=== PATIENT | male | born 1995 | race African-American/Black ===

== ENCOUNTER 2020-05-03 06:19 | Emergency (ER) | payer OTHER ==
[2020-05-03] MEDS ORDERED: ONDANSETRON HCL INJ/PF 4 MG/2 ML SDV IV ONE (06:47)
[2020-05-03] MEDS ORDERED: HYDROMORPHONE HCL INJ/PF 2 MG/ML AMPULE IV ONE ×2 (06:47→07:54)
[2020-05-03] MEDS ORDERED: ETOMIDATE INJ/PF 20 MG/10 ML SDV IV ONE ×2 (06:47→07:56)
--- NOTE | 2020-05-03 06:53 | ER Document Report ---
ED General - General Chief Complaint: Shoulder Injury Stated Complaint: DISLOCATED SHOULDER Primary Care Provider: RENO MIRELES MD [COMMUNITY BASED STAFF] - Follow up as needed - HPI Notes: Chief complaint: Recurrent left shoulder dislocation. 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 He complains of severe pain in the left shoulder. He has never had surgery on his shoulder. 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 He smokes about 4 cigars a day. Drinks alcohol socially. Denies drug use. Denies any other significant medical problems. Last meal was greater than 6 hours ago. Denies any prior problems with procedural sedation/anesthesia. 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 HENT: Negative for sore throat. Eyes: Negative for visual changes. Cardiovascular: Negative for chest pain. Respiratory: Negative for shortness of breath. Gastrointestinal: Negative for abdominal pain, vomiting or diarrhea. Genitourinary: Negative for dysuria. Musculoskeletal: As per HPI. Skin: Negative for rash. Neurological: Negative for headaches, weakness or numbness. 10 point ROS negative except as marked above and in HPI. Physical Exam - Vital signs Vitals: Resp 13 05/03/20 06:24 - Notes Notes: GENERAL: Well-developed well-nourished male approximately stated age appearing in severe pain. SKIN: Good turgor no rashes. HEAD: Normocephalic atraumatic. EYES: PERRLA. EOMI. Conjunctivae and sclerae clear. EARS: CANALS AND TMS CLEAR. NOSE: CLEAR. MOUTH: Moist mucosa. Good dentition. No stridor or edema. No drooling. NECK: Supple. No masses or thyromegaly. No adenopathy. Carotids 2+ without bruits. No JVD. BACK: Symmetrical without tenderness. CHEST: Respirations unlabored. Breath sounds clear and symmetrical. HEART: Regular rhythm. No murmur gallop or rub. ABDOMEN: Soft nontender without masses, organomegaly or rebound. Bowel sounds normally active. No bruits. GENITALIA: Deferred. EXTREMITIES: Left shoulder appears obviously dislocated. Patient is holding his left upper extremity close to his body with 90 degree flexion of elbow resisting movement in all planes secondary to pain. His distal neurovascular status is intact. No edema. No calf tenderness. Cap refill less than 1.5 seconds. Dorsalis pedis and posterior tibial pulses 3+ and symmetrical. NEUROLOGICAL: GCS 15. Alert and oriented x3. Normal gait. Fluent speech. Cranial nerves II through XII intact. Sensorimotor and cerebellar normal. Normal tone. PSYCHIATRIC: Appropriate affect. Course - Re-evaluation Re-evalutation: 05/03/20 08:16 Left shoulder clinically was dislocated and x-ray confirmed anterior-inferior dislocation without fracture. Patient received IV Dilaudid and IV Zofran. Subsequently underwent procedural sedation and reduction of the joint with application of shoulder immobilizer and documentation of appropriate reduction on x-ray. Following uncomplicated recovery from sedation patient is discharged home. He is strongly encouraged to see an orthopedist as soon as possible to discuss definitive surgery for ligamentous instability of his left shoulder. Findings, clinical impression and plan of treatment have been discussed with patient/family. Understanding of current findings and recommendations has been acknowledged by them and there is agreement regarding disposition and follow-up. - Vital Signs Vital signs: Temp Pulse Resp BP Pulse Ox 74 14 125/73 100 05/03/20 07:25 05/03/20 08:01 05/03/20 08:00 05/03/20 08:01 - Laboratory Results Critical Laboratory Results Reviewed: No Critical Results - Radiology Results Radiology Results Interpreted: 05/03/20 08:18 Shoulder X-Ray 05/03/20 06:21 IMPRESSION: Anterior inferior dislocation of the left glenohumeral joint without evidence of acute fracture. Critical Radiology Results Reviewed: Yes Attending or Supervising Physician who Reviewed Radiology: RENO TORRES Procedures - Conscious Sedation Conscious sedation Time started: 07:55 Time completed: 08:10 Consent obtained: Yes Indication: Anterior shoulder dislocation Last meal: Greater than 6 hours prior to procedure Prior complications: Other - None Emergent conditions applies.: E. - ASA Classification Normal healthy pt.: P1. 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 Medications administered: Etomidate Reversal agents: None I personally performed/intraservice time: Sedation, Procedure, 30 min or less Complications: No - Immobilization Left Shoulder Immobilizer type: Shoulder immobilizer Performed by: PCT Post-Proc Neuro Vasc Exam: Normal Alignment checked and good: Yes - Joint Reduction/Fracture Care Left Shoulder Time completed: 08:10 Consent obtained: Yes Conscious sedation: Yes Pre-procedure NV exam: Yes Fracture: Other - No fracture. Anterior dislocation. Manipulation comment: Traction/countertraction Post-procedure NV exam: Yes Post-reduction x-ray: Joint reduced Reduction attempts: 1 Complications: No Notes: 05/03/20 08:14 Well-tolerated without complications. Discharge - Discharge Clinical Impression: Anterior dislocation of left shoulder Qualifiers: Encounter type: initial encounter Qualified Code(s): S43.015A - Anterior dislocation of left humerus, initial encounter Condition: Stable Disposition: HOME, SELF-CARE Instructions: Oral Narcotic Medication ([facility]), Shoulder Dislocation ([facility]), Sling as Treatment ([facility]) Additional Instructions: Keep sling on left upper extremity into you see customer acquisition specialist. Take prescribed pain medication as directed. Do not drive while taking narcotic pain medication. Apply ice packs to left shoulder as needed. Follow-up with customer acquisition specialist as soon as possible. You have been provided a work note for the next 3 days. Return here as needed for new or worsening symptoms: Pain that is worsening or unimproved Uncontrolled vomiting High fever or shaking chills Overall worsening Prescriptions: Oxycodone HCl/Acetaminophen [Percocet 5-325 mg Tablet] 1 tab PO Q6H PRN #15 tab PRN Reason: Forms: Return to Work Referrals: RENO MIRELES MD [COMMUNITY BASED STAFF] - Follow up as needed MOIRA AGUSTIN DO [ACTIVE STAFF] - Follow up as needed
--- NOTE | 2020-05-03 07:03 | RADIOLOGY REPORT (SQ) ---
EXAM: SHOULDER LEFT 2 OR MORE VIEWS CLINICAL DATA: 24 years Male deformity TECHNICAL DATA: 2 x-ray views of the left shoulder were performed on 05/03/2020 at 6:31 AM. COMPARISONS: None FINDINGS: There is anterior inferior dislocation of the left glenohumeral joint. No definite acute fracture is identified. The acromioclavicular joint is intact. No lytic or sclerotic bone lesions are seen. There are no significant degenerative or arthritic changes. Bone mineralization is normal. No acute soft tissue abnormalities are identified. The visualized portions of the left hemithorax are unremarkable. IMPRESSION: Anterior inferior dislocation of the left glenohumeral joint without evidence of acute fracture.
--- NOTE | 2020-05-03 08:32 | RADIOLOGY REPORT (SQ) ---
EXAM DESCRIPTION: SHOULDER LEFT 2 OR MORE VIEWS IMAGES COMPLETED DATE/TIME: 05/03/2020 8:15 am REASON FOR STUDY: POST REDUCTION COMPARISON: None. NUMBER OF VIEWS: Two views. TECHNIQUE: AP and scapular Y-views of the left shoulder were obtained. LIMITATIONS: None. FINDINGS: MINERALIZATION: Normal. BONES: Successful reduction of the previously dislocated left glenohumeral joint. The wedge-shaped d efect in the posterior-lateral aspect of the humeral head is consistent with a Hill-Sachs defect. JOINTS: As above. VISUALIZED LUNGS AND RIBS: No pneumothorax or rib fracture. SOFT TISSUES: No radiopaque foreign body. OTHER: No other findings. IMPRESSION: Successful reduction of the previously dislocated left glenohumeral joint. The wedge-sh aped defect in the posterior-lateral aspect of the humeral head is consistent with a Hill-Sachs defec t. TECHNICAL DOCUMENTATION: JOB ID: [id number] 2010 [employer]- All Rights Reserved Reading location - IP/workstation name: [email or web address]
[2020-05-03 09:19] VITALS: BP 118/66
== END 2020-05-03 09:19 | disposition home or self-care (01) ==
LOC: ER 06:19
DX: S43.015A Anterior dislocation of left humerus, initial encounter (principal); M25.512 Pain in left shoulder; X58.XXXA Exposure to other specified factors, initial encounter; F17.210 Nicotine dependence, cigarettes, uncomplicated
CPT/HCPCS: 99285; 99152; 96374; 96375; 73030; 23650; J1170; J2405; J3490